=== PATIENT | male | born 1965 | race Caucasian/White ===

== ENCOUNTER 2018-10-24 12:40 | Emergency (ER) | payer OTHER ==
[~2018-10-24] VITALS: Ht 172.7 cm; Wt 85.8 kg
[~2018-10-24 12:40] MED LIST: LISI5TAB7 PO
[2018-10-24 13:25] VITALS: BP 153/94
--- NOTE | 2018-10-24 13:42 | NUR ---
TAKEN FOR IMAGING
[2018-10-24] MEDS ORDERED: KETOROLAC 30 MG/1 ML IM ONE (14:00)
[2018-10-24] MEDS ORDERED: METHOCARBAMOL 750 MG TABLET PO ONE (14:00)
[2018-10-24] MEDS ORDERED: METHOCARBAMOL 750 MG TABLET ONE (14:04)
[2018-10-24] MEDS ORDERED: KETOROLAC 30 MG/1 ML ONE (14:04)
== END 2018-10-24 14:25 | disposition home or self-care (01) ==
LOC: ED 14:00
DX: S39.012A Strain of muscle, fascia and tendon of lower back, initial encounter (principal); S29.012A Strain of muscle and tendon of back wall of thorax, initial encounter; I10 Essential (primary) hypertension; Z88.0 Allergy status to penicillin; W01.0XXA Fall on same level from slipping, tripping and stumbling without subsequent striking against object, initial encounter; Y93.01 Activity, walking, marching and hiking; Y92.009 Unspecified place in unspecified non-institutional (private) residence as the place of occurrence of the external cause; Y99.8 Other external cause status
CPT/HCPCS: 72072; 72110; 96372; 99283; J1885

== ENCOUNTER 2019-04-21 09:09 | Outpatient (CLI) | payer OTHER | END 2019-04-21 23:59 | disposition home or self-care (01) | LOC: RAD 09:09 | PROVIDERS: ATTEND Internal Medicine | DX: K43.9 Ventral hernia without obstruction or gangrene (principal) | CPT/HCPCS: 76705 ==

== ENCOUNTER 2019-09-16 05:39 | Day surgery (SDC) | payer OTHER ==
[~2019-09-16] VITALS: Ht 177.8 cm; Wt 91.2 kg
[~2019-09-16 05:39] MED LIST changes: +HYDR25TA6 PO; +LOSA50TA14 PO; +TAMS-11 PO
[2019-09-16] MEDS ORDERED: LACTATED RINGERS 1,000 ML IV SCH (06:00)
[2019-09-16 06:25] VITALS: BP 137/91
[2019-09-16] MEDS ORDERED: LIDOCAINE-MPF 1%, 2ML ONE (06:36)
[2019-09-16] MEDS ORDERED: BUPIVACAINE/PF 0.5% ONE (06:55)
[2019-09-16] MEDS ORDERED: FENTANYL PF 250 MCG/5ML ONE (07:15)
[2019-09-16] MEDS ORDERED: LIDOCAINE-MPF 2% ,5ML ONE (07:15)
[2019-09-16] MEDS ORDERED: CEFAZOLIN 1,000 MG ONE ×2 (07:15)
[2019-09-16] MEDS ORDERED: PROPOFOL 10 MG/ML, 20ML ONE (07:15)
[2019-09-16] MEDS ORDERED: MIDAZOLAM 1 MG/ML, 2ML ONE (07:15)
[2019-09-16] MEDS ORDERED: ROCURONIUM 10MG/ML,5ML ONE (07:15)
[2019-09-16] MEDS ORDERED: ONDANSETRON 2MG/ML, 2ML ONE (07:16)
[2019-09-16] MEDS ORDERED: DEXAMETHASONE 4 MG/ML, 1ML ONE ×2 (07:16)
[2019-09-16] MEDS ORDERED: EPINEPHRINE 1 MG/ML, 1ML ONE (07:17)
[2019-09-16] MEDS ORDERED: SUGAMMADEX 200 MG/2 ML IVPush ONE (07:29)
[2019-09-16] MEDS ORDERED: GABAPENTIN 300 MG CAPSULE PO ONE (07:30)
[2019-09-16] MEDS ORDERED: ACETAMINOPHEN 500 MG TABLET PO ONE (07:30)
[2019-09-16] MEDS ORDERED: hydrALAzine 20 MG/ML, 1ML IV PRN (08:00)
[2019-09-16] MEDS ORDERED: ONDANSETRON 2MG/ML, 2ML IV PRN (08:00)
[2019-09-16] MEDS ORDERED: LABETALOL 5MG/ML, 20ML IV PRN (08:00)
[2019-09-16] MEDS ORDERED: METOCLOPRAMIDE 5 MG/ML, 2ML IV PRN (08:00)
[2019-09-16] MEDS ORDERED: LORazepam 2 MG/ML, 1ML IVPush PRN (08:00)
[2019-09-16] MEDS ORDERED: FENTANYL PF 100 MCG/2ML IV PRN (08:00)
[2019-09-16] MEDS ORDERED: MEPERIDINE/PF 25MG/ML,1ML IVPush PRN (08:00)
[2019-09-16] MEDS ORDERED: HYDROmorphone 2 MG/ML, 1ML IVPush PRN (08:00)
[2019-09-16] MEDS ORDERED: MEPERIDINE/PF 25MG/ML,1ML ONE (09:41)
[2019-09-16] MEDS ORDERED: OXYcodone 5 MG/5 ML ORAL.SOL UDC ONE ×2 (10:05→11:24)
[2019-09-16] MEDS ORDERED: FENTANYL PF 100 MCG/2ML ONE (10:05)
[2019-09-16] MEDS: OXYcodone 5 MG/5 ML ORAL.SOL UDC PO PRN ×2 (10:12→11:26)
[2019-09-16] MEDS ORDERED: hydrALAzine 20 MG/ML, 1ML ONE (10:28)
== END 2019-09-16 12:25 | disposition home or self-care (01) ==
LOC: OUT 05:39
PROVIDERS: ATTEND Surgery
DX: K43.9 Ventral hernia without obstruction or gangrene (principal); I10 Essential (primary) hypertension; N40.0 Benign prostatic hyperplasia without lower urinary tract symptoms; Z79.899 Other long term (current) drug therapy; Z88.0 Allergy status to penicillin; Z88.8 Allergy status to other drugs, medicaments and biological substances
CPT/HCPCS: 49652; C1781; J0171; J0690; J1100; J2175; J2250; J2405; J2704; J3010; S2900

== ENCOUNTER 2020-11-10 14:59 | Emergency (ER) | payer OTHER ==
[~2020-11-10] VITALS: Ht 177.8 cm; Wt 95.9 kg
--- NOTE | 2020-11-10 15:22 | NUR ---
TRIAGE COMPLETED BY THIS RN. EKG COMPLETED IN TRIAGE.
[2020-11-10] MEDS ORDERED: ASPIRIN 81 MG TABLET CHEW ONE (15:29)
[2020-11-10] MEDS ORDERED: SODIUM CHLORIDE FLUSH 10ML SYR IVF ONE (15:30)
[2020-11-10] MEDS ORDERED: ASPIRIN 81 MG TABLET CHEW PO ONE (15:30)
--- NOTE | 2020-11-10 15:41 | NUR ---
PT HAS CO CHEST PRESSURE, STARTED TODAY. DENIES N/V. NO PAIN, DOES NOT RADIATES TO ANYWHERE. DENIES SOB. PT NOT IN DISTRESS. EKG DONE IN TRIAGE. PT ON FREIGHT INSPECTOR. ADMINISTERED 162 ASA PER ORDERS. LABS AT BEDSIDE
[2020-11-10 16:01] LABS: MEAN CORPUSCULAR HEMOGLOBIN 33.6 pg (27.5-34.5); MEAN CORPUSCULAR HGB CONC 35.5 g/dL (33.2-36.2); MEAN PLATELET VOLUME 7.9 fL (7.4-10.4); PLATELET COUNT 229 x10^3/uL (130-400); RED BLOOD COUNT 5.35 x10^6/uL (4.38-5.82); RED CELL DISTRIBUTION WIDTH 12.9 % (9.4-14.8)
[2020-11-10 16:08] LABS: ALANINE AMINOTRANSFERASE 59 U/L (12-78); ALBUMIN 3.9 g/dL (3.4-5.0); ANION GAP 8 mmol/L (5-15); CALCIUM 8.7 mg/dL (8.5-10.1); CHLORIDE 109 mmol/L (98-107); CREATININE 1.41 mg/dL (0.7-1.3)
[2020-11-10 16:12] LABS: ALKALINE PHOSPHATASE 103 U/L (45-117); BILIRUBIN,TOTAL 0.8 mg/dL (0.2-1.0); TOTAL PROTEIN 7.4 g/dL (6.4-8.2); TROPONIN I < 0.015 ng/mL (0.000-0.045)
[2020-11-10 16:41] LABS: MD YES
[2020-11-10 16:43] LABS: <PLATELET ESTIMATE> ADEQUATE; <PLT MORPHOLOGY> NORMAL PLT MORPH; <RBC MORPHOLOGY> NORMAL; LYMPH#(MANUAL) 2.12 x10^3/uL (1-3.4); LYMPHS% (MANUAL) 21 % (22-44); MONOS% (MANUAL) 2 % (2-9); SEG#(MANUAL) 7.78 x10^3/uL (1.8-6.8); SEGS% (MANUAL) 77 % (42-75)
--- NOTE | 2020-11-10 16:50 | NUR ---
MD AT BEDSIDE DISCUSSING POC.
--- NOTE | 2020-11-10 16:55 | NUR ---
Patient/Caregiver given discharge instructions and they have confirmed that they understand the instructions. Patient ambulatory with steady gait.
[2020-11-10 16:58] VITALS: BP 142/79
== END 2020-11-10 17:07 | disposition home or self-care (01) ==
LOC: ED 15:36
DX: R00.2 Palpitations (principal); R07.89 Other chest pain; I44.4 Left anterior fascicular block; I49.3 Ventricular premature depolarization; Z88.0 Allergy status to penicillin; Z88.8 Allergy status to other drugs, medicaments and biological substances
CPT/HCPCS: 36415; 71045; 80053; 83880; 84484; 85025; 93005; 99285

== ENCOUNTER → 2020-12-03 | Outpatient (CLI) | payer OTHER ==
[2020-12-03 07:46] LABS: CHOL/HDL RATIO 5.9; LDL/HDL RATIO 3.1 (0.5-3.0)
== END | disposition home or self-care (01) ==
LOC: LAB 07:15
PROVIDERS: ATTEND Internal Medicine Cardiovascular Disease
DX: I10 Essential (primary) hypertension (principal); R07.89 Other chest pain
CPT/HCPCS: 36415; 80061; 84153; 84154

== ENCOUNTER → 2020-12-26 | Outpatient (CLI) | payer OTHER | END | disposition home or self-care (01) | LOC: CFH 06:42 | PROVIDERS: ATTEND Internal Medicine Cardiovascular Disease | DX: N20.0 Calculus of kidney (principal); I10 Essential (primary) hypertension; R07.89 Other chest pain; I25.10 Atherosclerotic heart disease of native coronary artery without angina pectoris | CPT/HCPCS: 75571; 93306; 93356; 93975 ==

== ENCOUNTER → 2021-03-22 | Outpatient (CLI) | payer OTHER | END | disposition home or self-care (01) | LOC: LAB 08:47 | PROVIDERS: ATTEND Urology | DX: R97.20 Elevated prostate specific antigen [PSA] (principal) | CPT/HCPCS: 36415; 84403 ==

== ENCOUNTER 2021-05-30 08:02 | Day surgery (SDC) | payer OTHER ==
[~2021-05-30] VITALS: Ht 177.8 cm; Wt 98.3 kg
[2021-05-30 08:28] VITALS: BP 162/94
== END 2021-05-30 14:41 | disposition home or self-care (01) ==
LOC: OUT 08:02
PROVIDERS: ATTEND Urology
DX: N20.0 Calculus of kidney (principal); N40.0 Benign prostatic hyperplasia without lower urinary tract symptoms; I10 Essential (primary) hypertension; Z20.822 Contact with and (suspected) exposure to COVID-19; Z79.899 Other long term (current) drug therapy; Z88.0 Allergy status to penicillin; Z88.8 Allergy status to other drugs, medicaments and biological substances
CPT/HCPCS: 36415; 52356; 74420; 80053; 81003; 82360; 87086; 88300; C1769; C2617; J0690; J1100; J1885; J2250; J2405; J2704; J2710; J3010; J7120; Q9967; U0003; U0005